=== PATIENT | male | born 1990 | race Caucasian/White ===

== ENCOUNTER 2018-05-12 06:04 | Day surgery (SDC) | payer OTHER ==
[2018-05-12] VITALS (23 sets, daily range): BP systolic 101–154; BP diastolic 63–103; PULSE 61–98; RESP 12–61; Ht 172.7 cm; Wt 64.8 kg
[~2018-05-12] VITALS: Ht 172.7 cm; Wt 64.8 kg
[2018-05-12] MEDS ORDERED: CARI350T29 PO (06:45)
[2018-05-12] MEDS ORDERED: OXYC15TA PO (06:46)
[2018-05-12] MEDS ORDERED: CEFAZOLIN 1 GM INJ ONE (07:00)
[2018-05-12] MEDS ORDERED: FENTAnyl 50 MCG/ML VIAL ONE ×2 (07:09→08:07)
[2018-05-12] MEDS ORDERED: PROPOFOL 20 ML ONE (07:09)
[2018-05-12] MEDS ORDERED: ROCURONIUM 50 MG INJ ONE (07:09)
[2018-05-12] MEDS ORDERED: GLYCOPYRROLATE 0.4 MG INJ ONE (07:09)
[2018-05-12] MEDS ORDERED: MIDAZOLAM 1 MG/ML 2 ML INJ ONE (07:09)
[2018-05-12] MEDS ORDERED: LIDOCAINE 100 MG SYRINGE ONE (07:09)
[2018-05-12] MEDS ORDERED: SUGAMMADEX SODIUM 200 MG/2 ML VIAL IV ONE (07:10)
[2018-05-12] MEDS ORDERED: DEXAMETHASONE 4 MG/ML 5 ML INJ ONE (07:10)
[2018-05-12] MEDS ORDERED: ONDANSETRON 4 MG INJ ONE (07:10)
--- NOTE | 2018-05-12 07:17 | PREAC ---
Date/Time of Note Date/Time of Note DATE: 05/12/18 TIME: 07:16 Anesthesia Eval and Record Evaluation Time Pre-Procedure Interview DATE: 05/12/18 TIME: 07:16 Age 27 Sex male NPO: 8 hrs Preoperative diagnosis nasal congestion / excessive post nasal drip Planned procedure ENDOSCOPIC SINUS SURGERY, SEPTOPLASTY Past Medical History Past Medical History: Includes Pulm: Smoking Hx, Asthma Recreational drugs: Marijuana Surgery & Anesthesia Issues No known issue Meds Anticoagulation: No Beta Constance within 24 hr: No Reason Beta Constance not given: Pt. not on B-Constance Reported Medications Oxycodone Hcl* (IR) (Oxycodone Hcl*) 15 Mg Tablet, 15 MG PO BID PRN for PAIN, TAB 05/12/18 Carisoprodol* (Carisoprodol*) 350 Mg Tablet, 350 MG PO DAILY PRN for MUSCLE SPASMS, TAB 05/12/18 Meds reviewed: Yes Allergies Coded Allergies: No Known Allergy (Unverified , 05/12/18) Allergies Reviewed: Yes Labs/Studies Labs Reviewed: Reviewed by anesthesiologist test: N/A Pre-procedure Exam Airway: Adequate mouth opening Mallampati: Mallampati II Teeth: Normal Lung: Normal Heart: Normal ASA Physical Status ASA physical status: 1 Emergency: None Planned Anesthetic General/MAC: ETT Pre-operative Attestations Prior to commencing anesthesia and surgery, the patient was re-evaluated, there was verification of: *The patient's identity *The results of appropriate recent lab work and preoperative vital signs *The above evaluation not changing prior to induction *Anesthetic plan, risk benefits, alternative and complications discussed with patient/family; questions answered; patient/family understands, accepts and wishes to proceed. ELISSA DUARTE May 12, 2018 07:17
[2018-05-12] MEDS ORDERED: OXYMETAZOLINE 0.05% 15 ML NAS SPRAY NASAL ONE (07:19)
[2018-05-12] MEDS ORDERED: PROVENTIL HFA 6.7GM INHALER ONE (07:29)
[2018-05-12] MEDS ORDERED: LIDOCAINE 1%/EPI (1:100,000) (MDV) 20 ML ONE (07:30)
[2018-05-12] MEDS ORDERED: EPINEPHrine 0.1 MG/ML SYG ONE (07:30)
[2018-05-12] MEDS ORDERED: THROMBIN (BOVINE) 5,000 UNIT VIAL TP ONE (07:30)
--- NOTE | 2018-05-12 07:32 | HPN ---
Date/Time of Note Date/Time of Note DATE: 05/12/18 TIME: 07:32 Interval H&P Admission Note Pt. seen H&P reviewed: No system changes ZOE SANCHEZ MD May 12, 2018 07:32
[2018-05-12] MEDS ORDERED: LABETALOL HCL 20MG INJ IV PRN (08:00)
[2018-05-12] MEDS ORDERED: hydrALAzine 20 MG INJ IV PRN (08:00)
[2018-05-12] MEDS ORDERED: ONDANSETRON 4 MG INJ IV PRN (08:00)
[2018-05-12] MEDS ORDERED: HYDROmorphONE 1 MG/5 ML IV SYRINGE IV PRN ×2 (08:00)
[2018-05-12] MEDS ORDERED: MEPERIDINE 25 MG INJ IV PRN (08:00)
[2018-05-12] MEDS ORDERED: FENTAnyl 50 MCG/ML VIAL IV PRN ×2 (08:00)
[2018-05-12] MEDS ORDERED: METOCLOPRAMIDE 10 MG INJ IV PRN (08:00)
[2018-05-12] MEDS ORDERED: HYDROmorphONE 2 MG/ML SYG ONE (08:40)
[2018-05-12] MEDS ORDERED: LABETALOL HCL 20MG INJ ONE (09:04)
--- NOTE | 2018-05-12 11:01 | PAC ---
Date/Time of Note Date/Time of Note DATE: 05/12/18 TIME: 10:58 Post-Anesthesia Notes Post-Anesthesia Note Activity: WNL Respiratory function: WNL Cardiovascular function: WNL Mental status: Baseline Pain reasonably controlled: Yes Hydration appropriate: Yes Nausea/Vomiting absent: Yes Comments BP 134/88 HR 97 SpO2 100% RR 16 Temp 98.6F ELISSA DUARTE May 12, 2018 11:01
--- NOTE | 2018-05-12 11:11 | SIPON ---
Date/Time of Note Date/Time of Note DATE: 05/12/18 TIME: 11:09 Operative Report Preoperative Diagnosis 1. Chronic rhinosinusitis with nasal polyps. 2. Chronic frontal sinusitis. 3. Chronic ethmoid sinusitis. 4. Chronic maxillary sinusitis. 5. Chronic sphenoid sinusitis. 6. Hyposmia. 7. Postnasal drainage. 8. Deviated nasal septum. 9. Inferior turbinate hypertrophy. Postoperative Diagnosis Same Operation/Procedure Performed 1. Bilateral frontal sinusotomies. 2. Bilateral total ethmoidectomies (anterior and posterior). 3. Bilateral maxillary antrostomies with tissue removal. 4. Bilateral sphenoid sinusotomies with tissue removal. 5. Computer-assisted surgical navigation. 6. Septoplasty 7. Inferior turbinate reduction, submucous, bilateral. Surgeon see signature line minister assistant None Anesthesia: general Estimated blood loss: 50 - 100 ml's Transfusion Required none Specimen 1. Septal contents 2. Sinus contents Grafts/Implants none Complications none ZOE SANCHEZ MD May 12, 2018 11:11
--- NOTE | 2018-05-12 11:27 | OPR ---
Date/Time of Note Date/Time of Note DATE: 05/12/18 TIME: 11:12 Operative Report Procedure Date: May 12, 2018 Preoperative Diagnosis z Postoperative Diagnosis z Operation/Procedure Performed z Surgeon see signature line Brick Setter none Anesthesia Type: general Estimated Blood Loss: 50 - 100 ml's Transfusion none Specimen z Grafts/Implants none Complications none Pt Condition Post Procedure: stable Disposition: PACU Procedure Description OPERATIVE REPORT OTOLARYNGOLOGY / HEAD AND NECK SURGERY DATE OF OPERATION: 05/12/2018 ATTENDING SURGEON: Karl Honeycutt MD, [facility]. PREOPERATIVE DIAGNOSIS: 1. Chronic rhinosinusitis with nasal polyps. 2. Chronic frontal sinusitis. 3. Chronic ethmoid sinusitis. 4. Chronic maxillary sinusitis. 5. Chronic sphenoid sinusitis. 6. Hyposmia. 7. Postnasal drainage. 8. Deviated nasal septum. 9. Inferior turbinate hypertrophy. POSTOPERATIVE DIAGNOSIS: Same. PROCEDURE: 1. Bilateral frontal sinusotomies with tissue removal. 2. Bilateral total ethmoidectomies (anterior and posterior). 3. Bilateral maxillary antrostomies with tissue removal. 4. Bilateral sphenoid sinusotomies with tissue removal. 5. Computer-assisted surgical navigation. 6. Septoplasty. 7. Inferior turbinate reduction, bilateral, submucous technique. ANESTHESIA: General. INDICATIONS: This patient presented with a history of chronic rhinosinusitis. He failed multiple topical and oral medications. CT sinus indicated pansinus disease. I discussed with the patient the risks, benefits, rationale, and alternatives to surgery, including risks of failure to improve symptoms, worsening of symptoms, loss of smell/taste, CSF leak, eye injury, septal perforation, empty nose syndrome, pain, scar, bleeding, numbness, infection, need for further treatment, and reactions to general anesthesia that could even include . The patient elected to proceed. FINDINGS: Deviated septum completely obstructing view of the right middle meatus and left caudal spur. Inferior turbinate hypertrophy. Polyps in the bilateral ethmoid sinuses. DESCRIPTION OF PROCEDURE: The patient was identified in the preoperative holding area and the informed consent was confirmed. The patient was transferred to the operating room and positioned on the operating table with all pressure points padded. A time-out was performed. The patient was orally intubated by the anesthesiologist without difficulty. The eyes were protected by the anesthesiologist. Image guidance was placed on the patient's forehead, registered, calibrated, and deemed to be accurate prior to surgery. The use of image guidance was necessary in this operation due to loss of landmarks from the prior surgery. The patient was prepped and draped in the usual sterile fashion. Injection of 1% lidocaine with 1:100,000 epinephrine was performed for a total of 7mL in the submucoperichondrial plane of the septum. Afrin-soaked pledgets were placed. A hemitransfixion incision was made in the left caudal septum with a #15 blade. The submucoperichondrial plane was identified sharply. The mucoperichondrial flap was elevated fully on the left side, back to the bony septum, with endoscopic assistance. A transcartilaginous incision was made using the cartilage D knife, preserving a more than 2cm dorso-caudal strut. The mucoperichondrial flap was elevated from the right side of the septum. When adequate exposure was obtained, a swivel knife was used to incise the cartilage superiorly, posteriorly and inferiorly. A segment of deviated cartilage with a large spur to the right was resected en bloc. This allowed visualization of the posterior septum. The posterior bony septum was relatively straight and left intact. The maxillary crest was also deviated to the left side significantly. The 2mm osteotome was introduced and the deviated portion was thereby sharply, and then removed with Lupe forceps. Examination of the bilateral nasal cavities revealed increased patency at this point, so the hemitransfixion incision was closed with 4-0 chromic suture in an interrupted manner. Mattress suturing of the septum was carried out with 4-0 plain gut suture. Right maxillary antrostomy with tissue removal: Polyps in the ethmoid sinus and middle meatus were removed using a straight microdebrider. Curved suction was used to enter the maxillary sinus. A straight through-cutting forceps was used to extend the antrostomy posteriorly, and a backbiter was used to connect the surgical antrostomy to the natural ostium. Right total ethmoidectomy: The ethmoid bulla was removed using a J-curette and microdebrider. The ground lamella of the middle turbinate was identified and entered above the sphenopalatine artery branch. The polyps and tissue from the anterior and posterior ethmoids were removed using a microdebrider and forceps. The partitions between the ethmoids were removed with thru cutting instruments and microdebrider. The superior turbinate was identified and preserved above the level of the maxillary roof. The dissection proceeded from posterior to anterior until the polyps were removed. Right sphenoid sinusotomy with tissue removal: Multiple instruments were used to identify the natural sphenoid ostium and then widen that ostium. Navigation was utilized to avoid damage to the optic nerve or carotid artery. The sinus was multiply irrigated and suctioned dry. Right frontal sinusotomy with tissue removal: Polyps obstructing the frontal recess were removed with the microdebrider. The frontal sinus was entered with the guidewire from the [employer] balloon and confirmed with transillumination. The balloon was deployed and inflated to 12 for 30 seconds. This was repeated a second time. Following this frontal recess was widely patent and there was an excellent view of the frontal sinus. Left maxillary antrostomy with tissue removal: Polyps in the ethmoid sinus and middle meatus were removed using a straight microdebrider. Curved suction was used to enter the maxillary sinus. A straight through-cutting forceps was used to extend the antrostomy posteriorly, and a backbiter was used to connect the surgical antrostomy to the natural ostium. Left total ethmoidectomy: The ethmoid bulla was removed using a J-curette and microdebrider. The ground lamella of the middle turbinate was identified and entered above the sphenopalatine artery branch. The polyps and tissue from the anterior and posterior ethmoids were removed using a microdebrider and forceps. The partitions between the ethmoids were removed with thru cutting instruments and microdebrider. The superior turbinate was identified and preserved above the level of the maxillary roof. The dissection proceeded from posterior to anterior until the polyps were removed. Left sphenoid sinusotomy with tissue removal: Multiple instruments were used to identify the natural sphenoid ostium and then widen that ostium. Navigation was utilized to avoid damage to the optic nerve or carotid artery. The sinus was multiply irrigated and suctioned dry. Left frontal sinusotomy with tissue removal: Polyps obstructing the frontal recess were removed with the microdebrider. The frontal sinus was entered with the guidewire from the [employer] balloon and confirmed with transillumination. The balloon was deployed and inflated to 12 for 30 seconds. This was repeated a second time. Following this frontal recess was widely patent and there was an excellent view of the frontal sinus. Next, the turbinate reduction was performed. 1% lidocaine with 1:100,000 epinephrine was injected into the submucoperiosteal plane of each inferior turbinate. A stab incision was made at the head of each inferior turbinate with a #15 blade. The plane was tunneled posteriorly with a brady elevator on the left side. Visualization was achieved with the 0 degree endoscope. The microdebrider with the 2mm turbinate blade was used to resect the turbinate tissue in a submucosal manner. The bipolar cautery was introduced, and was activated while it was slowly withdrawn from the turbinate, with hemostasis of the turbinate head ensured. The turbinate was then in-fractured and outfractured. This was repeated identically on the right side. Propel stents were deployed in the ethmoid cavity to reduce polyp recurrence. Nasopore was placed to medialize the middle turbinate and prevent bleeding in the region of the sphenopalatine artery, and also between the septum and inferior turbinate bilaterally. Hemostasis at this time was excellent. The patient was thereafter returned to the care of the anesthesiologist and ultimately extubated without complications. All instrument and sponge counts were correct. MEDICATIONS: Ancef, Decadron. DVT PROPHYLAXIS: SCDs. ESTIMATED BLOOD LOSS: Minimal. SPECIMENS: 1. Septal contents. 2. Sinus contents. COMPLICATIONS: None. DISPOSITION: The patient was transported to recovery in stable condition. KARL HONEYCUTT MD May 12, 2018 11:26
[2018-05-12] MEDS ORDERED: HYDROCODONE/APAP (5/325) TAB PO ONE (15:00)
== END 2018-05-12 16:14 | disposition home or self-care (01) ==
LOC: SDS 06:04
PROVIDERS: ATTEND Otolaryngology
DX: J32.1 Chronic frontal sinusitis (principal); J32.2 Chronic ethmoidal sinusitis; J32.0 Chronic maxillary sinusitis; J32.3 Chronic sphenoidal sinusitis; J34.2 Deviated nasal septum; J34.3 Hypertrophy of nasal turbinates
CPT/HCPCS: 30140; 30520; 31253; 31256; 31257; 88300; 88304; J0690; J1100; J1170; J2001; J2250; J2405; J3010; Z7512; Z7610; J0171